=== PATIENT | female | born 1975 | race Native Hawaiian/Other Pacific Islander ===

== ENCOUNTER 2017-11-16 10:19 | Outpatient (CLI) | payer OTHER ==
[~2017-11-16 10:19] MED LIST: ALBU0.5N13 IN; ALPR0.5T24 PO; CARI350T15 PO; CHANTIX CONTINUI1 MG PO; CHANTIX STARTIN0.5 & PO; FENT50DI TD; MOBIC7.5 M1 PO; NEURONTIN800 MG PO; PERCOCET1 TA3 PO
== END 2017-11-16 18:52 | disposition home or self-care (01) ==
LOC: MAMMO 10:19
DX: N64.4 Mastodynia (principal)

== ENCOUNTER 2018-02-25 14:58 | Outpatient (CLI) | payer OTHER | END 2018-02-25 21:25 | disposition home or self-care (01) | LOC: RAD 14:58 | DX: R06.02 Shortness of breath (principal) ==

== ENCOUNTER 2018-03-29 11:13 | Outpatient (CLI) | payer OTHER | END 2018-03-29 19:48 | disposition home or self-care (01) | LOC: RESP 11:13 | DX: R07.9 Chest pain, unspecified (principal) ==

== ENCOUNTER 2018-06-30 14:33 | Outpatient (CLI) | payer OTHER | END 2018-06-30 19:29 | disposition home or self-care (01) | LOC: RAD 14:33 | DX: J40 Bronchitis, not specified as acute or chronic (principal) ==

== ENCOUNTER 2018-10-21 13:54 | Outpatient (CLI) | payer OTHER | END 2018-10-21 21:39 | disposition home or self-care (01) | LOC: MRI 13:54 | DX: M54.5 Low back pain (principal); M54.16 Radiculopathy, lumbar region ==

== ENCOUNTER 2022-02-03 09:52 | Outpatient (CLI) | payer OTHER | END 2022-02-03 19:09 | disposition home or self-care (01) | LOC: RAD 09:52 | PROVIDERS: ATTEND Nurse Practitioner | DX: Z01.818 Encounter for other preprocedural examination (principal) ==

== ENCOUNTER 2022-12-16 15:06 | Outpatient (CLI) | payer OTHER | END 2022-12-16 19:00 | disposition home or self-care (01) | LOC: RAD 15:06 | PROVIDERS: ATTEND Nurse Practitioner | DX: M51.36 Other intervertebral disc degeneration, lumbar region (principal) ==